=== PATIENT | female | born 1970 | race Caucasian/White ===

== ENCOUNTER 2021-05-03 20:04 | Emergency (ER) | payer OTHER ==
[~2021-05-03] VITALS: Ht 180.3 cm; Wt 81.6 kg
[2021-05-03 20:19] VITALS: BP 140/87
--- NOTE | 2021-05-03 20:22 | NUR ---
TO LOBBY A/W BED AMBULATORY
--- NOTE | 2021-05-04 01:06 | NUR ---
se[place] by Dr. Porter
== END 2021-05-04 01:06 | disposition left against medical advice (07) ==
LOC: MED 20:04
DX: M79.10 Myalgia, unspecified site (principal); Z53.21 Procedure and treatment not carried out due to patient leaving prior to being seen by health care provider